=== PATIENT | male | born 1970 ===

== ENCOUNTER → 2017-06-08 | Outpatient (CLI) | payer OTHER ==
[~2017-06-08] MED LIST: IOPAMIDOL (ISOVUE-300) 100 ML BTL ONE
== END ==
LOC: CIMAGING 14:30
PROVIDERS: ATTEND Physical Medicine & Rehabilitation
DX: M85.48 Solitary bone cyst, other site (principal)
CPT/HCPCS: 74177-PO; Q9967

== ENCOUNTER 2018-05-30 14:24 | Day surgery (SDC) | payer OTHER ==
[2018-05-30] MEDS ORDERED: LR 1,000 ML IV ONE (14:56)
[2018-05-30] MEDS ORDERED: LIDOCAINE 1% 2 ML INJ ID PRN (14:56)
[2018-05-30] MEDS ORDERED: ceFAZolin 2 GM/DEXTROSE 100 ML IV ONE (15:54)
--- NOTE | 2018-05-30 15:54 | PDHPUP ---
History & Physical Update H&P update statement: This history and physical update is based on an assessment of the patient which was completed after admission or registration (within 24 hours), but prior to the surgery/procedure. H&P update: no change in patient's condition since H&P completed H&P changes: none
[2018-05-30] MEDS ORDERED: MIDAZOLAM 2 MG/2 ML VIAL IVP ONE (15:59)
[2018-05-30] MEDS ORDERED: LR 500 ML IV PRN (16:01)
[2018-05-30] MEDS ORDERED: fentaNYL 100 MCG/2 ML INJ IVP PRN (16:01)
[2018-05-30] MEDS ORDERED: HYDROCODONE/APAP 5/325 TAB PO PRN (16:01)
[2018-05-30] MEDS ORDERED: ONDANSETRON 4 MG/2 ML VIAL IVP PRN (16:01)
[2018-05-30] MEDS ORDERED: oxyCODONE IR 5 MG TAB PO PRN (16:01)
[2018-05-30] MEDS ORDERED: ACETAMINOPHEN 500 MG TAB PO PRN (16:01)
[2018-05-30] MEDS ORDERED: NALOXONE HCL 0.4 MG/ML INJ IVP PRN (16:01)
[2018-05-30] MEDS ORDERED: MEPERIDINE 25 MG/0.5 ML AMP IVP PRN (16:01)
--- NOTE | 2018-05-30 16:01 | PDANEPAE ---
ANE Past Medical History - Pulmonary History Hx Sleep Apnea: Yes ANE Review of Systems Review of Systems: ANE Patient History - Allergies Allergies/Adverse Reactions: prochlorperazine [From Compazine] Allergy (Verified 05/30/18 14:50) - Home Medications Home medications: home medication list seen and reviewed Home Medications: Albuterol 05/30/18 [Last Taken 05/30/18] Fexofenadine HCl 05/30/18 [Last Taken 05/30/18] Glucosamine 05/30/18 [Last Taken 05/30/18] Herbals/Supplements -Info Only MDD glucosamine, 05/30/18 [Last Taken 05/30/18] Multivitamin 05/30/18 [Last Taken 05/30/18] Nasacort 05/30/18 [Last Taken 05/29/18] Polyethylene Glycol 3350 05/30/18 [Last Taken 05/29/18] Singulair 05/30/18 [Last Taken 05/30/18] Tamsulosin HCl 05/30/18 [Last Taken 05/30/18] Vitamin D3 05/30/18 [Last Taken 05/30/18] - NPO status NPO Status: no food or drink >8 hours NPO Since - Liquids (Date): 05/30/18 NPO Since - Liquids (Time): 13:00 NPO Since - Solids (Date): 05/30/18 NPO Since - Solids (Time): 09:30 - Anes Hx Anes Hx: no prior problems ANE Labs/Vital Signs - Vital Signs Blood Pressure: 109/78 Heart Rate: 58 Respiratory Rate: 18 O2 Sat (%): 94 Height: 167.64 cm Weight: 79.379 kg ANE Physical Exam - Airway Neck exam: FROM Mallampati Score: Class 2 - Pulmonary Pulmonary: no respiratory distress, no rales or rhonchi, clear to auscultation - Cardiovascular Cardiovascular: regular rate and rhythym, no murmur, rub, or gallop - ASA Status ASA Status: II ANE Anesthesia Plan Anesthesia Plan: GA w LMA
[2018-05-30] MEDS ORDERED: PROPOFOL 200 MG/20 ML VIAL ONE (16:19)
[2018-05-30] MEDS ORDERED: fentaNYL 100 MCG/2 ML INJ ONE ×2 (16:19→17:33)
[2018-05-30] MEDS ORDERED: DEXAMETHASONE 4 MG/ML VIAL ONE ×2 (16:20)
[2018-05-30] MEDS ORDERED: ONDANSETRON 4 MG/2 ML VIAL ONE (16:20)
--- NOTE | 2018-05-30 17:12 | POSTOPPROG ---
Post Op Note Date of Operation: 05/30/18 Surgeon: Osito Krause Pre-op Diagnosis: CHONG Post-op Diagnosis: CHONG Procedure: PVP Findings: [id number] Inf/Abcess present in the surg proc area at time of surgery?: No
--- NOTE | 2018-05-30 17:22 | POSTANESTH ---
Post Anesthetic Evaluation Cardiovascular Status: Normal, Stable, Similar to Pre-Op Cond Respiratory Status: Normal, Stable, Similar to Pre-op Cond. Level of Consciousness/Mental Status: Can Participate in Eval, Moderately Sleepy Pain Control: Adequate, Prn Tx Ordered Nausea/Vomiting Control: Adequate, Prn Tx Ordered Complications Possibly Related to Anesthesia: None Noted
[2018-05-30] MEDS ORDERED: OPIUM/BELLADONNA ALKALO SUPP PR ONE (17:45)
--- NOTE | 2018-05-30 18:04 | GOP ---
DATE OF OPERATION: 05/30/2018 SURGEON: Luis Krause MD NEUROSURGEON: Luis Krause MD ANESTHESIA: General. PREOPERATIVE DIAGNOSIS: Bladder outlet obstruction and severe International Prostate Symptom Score s ymptoms. POSTOPERATIVE DIAGNOSIS: Bladder outlet obstruction and severe International Prostate Symptom Score symptoms. PROCEDURE PERFORMED: GreenLight photovaporization of prostate. FINDINGS: ESTIMATED BLOOD LOSS: Minimal. DESCRIPTION OF PROCEDURE: Patient was taken to the operating room. General anesthesia was induced. Patient was placed in dorsal lithotomy position, prepped and draped in sterile fashion. The 22-Fren ch cystoscope with a 30-degree lens was inserted through the patient's urethra into the patient's juan c dder. Bladder was drained. The prostate was examined. Ureteral orifices were examined. The patien t basically has a very high bladder neck that is causing obstructive symptoms. The scope was withdrawn. The 26-Macedonian continuous flow resectoscope was inserted with visual obturat or through the patient's urethra into the patient's bladder. The GreenLight trocar was then inserted . The lasering was performed at the 5 and 7 o'clock positions, cutting down the bladder neck. A tot al of 8145 joules were used. Meticulous hemostasis was achieved. Excellent results were obtained. An 18-Macedonian 3-way Mark catheter was inserted without difficulty. The effluent was clear. Out of a n abundance of caution, gentle traction was placed on the catheter. The patient was returned to the supine position at the time of this dictation and [facility] being [facility] COMPLICATIONS: None. DRAINS: 18-Macedonian 3-way Mark catheter. JOULES USED: 8145. /[id number]/MODL
[2018-05-30 19:04] VITALS: BP 104/71
== END 2018-05-30 20:02 | disposition home or self-care (01) ==
LOC: FSGY 14:24
PROVIDERS: ATTEND Specialist
PROC: 0V508ZZ Destruction of Prostate, Via Natural or Artificial Opening Endoscopic (ICD-10-PCS; principal; 2018-05-30 16:30)
DX: N40.1 Benign prostatic hyperplasia with lower urinary tract symptoms (principal); R35.0 Frequency of micturition; R39.15 Urgency of urination; R35.1 Nocturia; R39.14 Feeling of incomplete bladder emptying; K59.00 Constipation, unspecified; G47.33 Obstructive sleep apnea (adult) (pediatric)
CPT/HCPCS: J0690; J1100; J2250; J2405; J2704; J3010

== ENCOUNTER → 2018-06-06 | Outpatient (CLI) | payer OTHER | END | disposition home or self-care (01) | LOC: CIMAGING 13:51 | PROVIDERS: ATTEND Physical Medicine & Rehabilitation Neuromuscular Medicine | DX: M48.061 Spinal stenosis, lumbar region without neurogenic claudication (principal); M48.04 Spinal stenosis, thoracic region; M25.78 Osteophyte, vertebrae; Q76.49 Other congenital malformations of spine, not associated with scoliosis | CPT/HCPCS: 72114-PO ==